=== PATIENT | male | born 1980 | race Caucasian/White ===

== ENCOUNTER 2016-12-31 20:27 | Emergency (ER) | payer OTHER ==
[~2016-12-31] VITALS: Ht 175.3 cm; Wt 70.5 kg
[2016-12-31] MEDS ORDERED: BENADRYL 5050 MG/CAP PO (20:42)
[2017-01-01] MEDS ORDERED: VIBRAMYCIN HYC100 MG PO (00:03)
[2017-01-01] MEDS ORDERED: KETOROLAC10 MG PO (00:03)
[2017-01-01] MEDS ORDERED: HYDROXYZINE HCL25 M1 PO (00:03)
[2017-01-01 00:38] VITALS: BP 112/70
== END 2017-01-01 00:38 | disposition home or self-care (01) ==
LOC: ED 20:27
DX: M76.52 Patellar tendinitis, left knee (principal); E86.0 Dehydration; R20.2 Paresthesia of skin; F22 Delusional disorders
CPT/HCPCS: J1885; J7030